=== PATIENT | female | born 1995 | race Hispanic/Latino ===

== ENCOUNTER → 2018-08-02 10:04 | Outpatient (CLI) | payer OTHER, SELFPAY ==
[2018-08-02 10:47] LABS: Add Manual Diff / Slide Review NO; Basophils Percent Auto 1.2 % (0-2); Eosinophils Percent Auto 3.9 % (2-4); Hematocrit 40.6 % (36-46); Hemoglobin 13.9 g/dL (12.0-16.0); Lymphocytes Percent Auto 47.2 % (25-40); Mean Corpuscular HGB Conc 34.3 % (30-36); Mean Corpuscular Hemoglobin 30.1 PG (26-34); Mean Corpuscular Volume 87.8 fL (80-100); Monocytes Percent Auto 8.1 % (3-14); Neutrophils Absolute Auto 1600 /uL (3000-5900); Neutrophils Percent Auto 39.6 % (50-75); Platelet Count 245 X10^3/uL (150-400); Red Blood Cell Count 4.62 X10^6/uL (4.0-5.2); Red Cell Distribution Width 12.8 % (11.6-14.8); White Blood Cell Count 4.1 X10^3/uL (4.5-11.0)
[2018-08-02 11:06] LABS: Alanine Aminotransferase 44 IU/L (9-52); Albumin 4.4 g/dL (3.5-5.0); Albumin Globulin Ratio 1.4 (1.0-2.8); Alkaline Phosphatase 67 U/L (38-126); Aspartate Aminotransferase 37 IU/L (14-36); Bilirubin Total 0.8 mg/dL (0.2-1.3); Blood Urea Nitrogen 14 mg/dL (7-17); Calcium 9.5 mg/dL (8.4-10.2); Carbon Dioxide 28 mmol/L (22-32); Chloride 104 mmol/L (98-107); Cholesterol 148 mg/dL (140-199); Estimated Glomerular Filt Rate > 60.0 mL/min (>60); Globulin 3.1 g/dL (1.7-4.1); Glucose 78 mg/dL (70-100); HDL Cholesterol 69 mg/dL (40-60); HEMOLYSIS < 15 (0-50); LDL Cholesterol Calculated 68 mg/dL (<100); Potassium 3.9 mmol/L (3.4-5.1); Sodium 143 mmol/L (137-145); Total Protein 7.5 g/dL (6.3-8.2); Triglycerides 55 mg/dL (35-150)
[2018-08-02 11:15] LABS: Appearance Urine UA CLEAR; Bilirubin Urine UA NEGATIVE (NEGATIVE); Color Urine UA YELLOW; Glucose Urine UA NEGATIVE (Normal); Ketones Urine UA NEGATIVE (NEGATIVE); Leukocyte Esterase Urine UA NEGATIVE (NEGATIVE); Nitrite Urine UA NEGATIVE (Negative); Occult Blood Urine UA NEGATIVE (Negative); Protein Urine UA NEGATIVE (Negative); Urobilinogen Urine UA 0.2 E.U./dL (0.2)
[2018-08-02 13:47] LABS: Thyroid Stimulating Hormone 2.21 uIU/mL (0.47-4.68)
== END ==
PROVIDERS: PCP Family Medicine; Visit Provider Family Medicine
DX: Z13.220 Encounter for screening for lipoid disorders (principal); Z13.29 Encounter for screening for other suspected endocrine disorder; Z30.09 Encounter for other general counseling and advice on contraception
CPT/HCPCS: 36415; 80053; 80061; 81003; 84443; 85025

== ENCOUNTER → 2018-09-28 11:44 | Outpatient (CLI) | payer OTHER, SELFPAY | PROVIDERS: PCP Family Medicine; Visit Provider Family Medicine | DX: N89.8 Other specified noninflammatory disorders of vagina (principal) | CPT/HCPCS: 87070; 87205 ==

== ENCOUNTER → 2018-11-22 14:40 | Outpatient (CLI) | payer OTHER, SELFPAY ==
--- NOTE | 2018-11-22 14:42 | DI.US.S_ITS ---
PROCEDURE: US OB <= 14 WEEKS FETUS INDICATIONS: INITIAL DATING ULTRASOUND OUTSIDE/PRIOR DATING DATA: Last menstrual period (LMP): 10/01/18. LMP-based estimated date of delivery (JAHAIRA): 07/08/19. First dating scan (date and location): [facility], 11/22/[facility]. Estimated date of delivery (JAHAIRA) from first dating scan: 07/14/19, plus or -5 days. TECHNIQUE: Real-time scanning was performed of the fetus and maternal pelvic organs, with image documentation. Endovaginal scanning was also performed to better visualize the fetus and maternal ovaries. COMPARISON: None. FINDINGS: Embryo: [place]-rump length of 7 mm correlates with a gestational age of 6 weeks 4 days, and heart activity at 135 beats per minute was observed Measurement variability in dating: +/- 4 weeks by LMP, +/- 7 days by mean sac diameter (use before 6 weeks gestation if crown-rump length not able to be measured), +/- 5 days by crown-rump length (up to 8 weeks 6 days gestation), +/- 7 days by crown-rump length (up to 13 weeks 6 days gestation). Maternal organs: Ovaries normal considering gestational status, with a possible corpus luteum cyst on the left measuring up to 2.7 cm.. Limited images through the kidneys demonstrate no hydronephrosis. IMPRESSION: Early first trimester gestation with delivery date projected to be centered on 07/14/19, plus or -5 days. anatomic survey at approximately 21 weeks gestation is recommended. Dictated by: Mark Sanchez M.D. on 11/22/2018 at 15:56 Approved by: Mark Sanchez M.D. on 11/22/2018 at 15:57
== END ==
PROVIDERS: PCP Family Medicine; Visit Provider Family Medicine
DX: Z34.91 Encounter for supervision of normal pregnancy, unspecified, first trimester (principal); Z3A.01 Less than 8 weeks gestation of pregnancy
CPT/HCPCS: 76801; 76817

== ENCOUNTER → 2018-12-12 12:32 | Outpatient (CLI) | payer OTHER, SELFPAY ==
[2018-12-12 13:25] LABS: Add Manual Diff / Slide Review NO; Basophils Absolute Auto 0 /uL (0-100); Basophils Percent Auto 0.6 % (0-2); Eosinophils Absolute Auto 0 /uL (0-450); Eosinophils Percent Auto 0.6 % (2-4); Hematocrit 43.2 % (36-46); Lymphocytes Absolute Auto 1500 /uL (1100-4500); Lymphocytes Percent Auto 20.9 % (25-40); Mean Corpuscular HGB Conc 34.7 % (30-36); Mean Corpuscular Hemoglobin 30.2 PG (26-34); Mean Corpuscular Volume 86.9 fL (80-100); Monocytes Absolute Auto 400 /uL (0-900); Monocytes Percent Auto 6.3 % (3-14); Neutrophils Absolute Auto 5100 /uL (1500-7000); Neutrophils Percent Auto 71.6 % (50-75); Platelet Count 301 X10^3/uL (150-400); Red Blood Cell Count 4.97 X10^6/uL (4.0-5.2); Red Cell Distribution Width 12.9 % (11.6-14.8); White Blood Cell Count 7.1 X10^3/uL (4.5-11.0)
[2018-12-12 14:10] LABS: Appearance Urine UA CLEAR; Bilirubin Urine UA NEGATIVE (NEGATIVE); Color Urine UA YELLOW; Glucose Urine UA NEGATIVE (Negative); Ketones Urine UA NEGATIVE (NEGATIVE); Leukocyte Esterase Urine UA TRACE (NEGATIVE); Nitrite Urine UA NEGATIVE (Negative); Occult Blood Urine UA NEGATIVE (Negative); Protein Urine UA NEGATIVE (Negative); Urobilinogen Urine UA 0.2 E.U./dL (0.2); pH Urine UA 6.5 (4.5-8.0)
[2018-12-12 14:12] LABS: RBC Urine None Seen (0-5/HPF)
[2018-12-12 15:01] LABS: Bacteria Urine Moderate (10-30); Squamous Epithelial Cell Urine 1-5 /HPF; WBC Urine 1-5/HPF (0-5/HPF)
[2018-12-12 16:37] LABS: Hepatitis B Surface Antigen NEGATIVE s/c (NEGATIVE); Rubella Antibody IgG 53.4 IU/mL (>15)
[2018-12-12 16:51] LABS: HIV 1 and 2 Antibody NEGATIVE (NEGATIVE); Hep C Virus Ab w/Reflex Quant NEGATIVE s/c (NEGATIVE)
[2018-12-16 19:31] LABS: RPR Screen Nonreactive (Nonreactive)
== END ==
PROVIDERS: PCP Family Medicine; Visit Provider Family Medicine
DX: Z34.91 Encounter for supervision of normal pregnancy, unspecified, first trimester (principal)
CPT/HCPCS: 36415; 80055; 81003; 81015; 86703; 86787; 86803; 86850; 86900; 86901; 87086

== ENCOUNTER → 2019-02-08 10:00 | Outpatient (CLI) | payer OTHER, SELFPAY ==
[2019-02-15 12:49] LABS: AFP, Serum 40.4 ng/mL; Cigarette Smoker NOT GIVEN; Donated Egg NOT GIVEN; Donor Egg Age NOT GIVEN; Estriol, Free 1.17 ng/mL; Inhibin A, Dimeric 201 pg/mL; Maternal Ethnicity HISPANIC; Maternal Weight 130 lbs; Number of Fetuses 1; Previous Pregnancy Down Syndro NOT GIVEN; hCG, MoM 1.17; hCG, Serum 36.7 IU/mL
== END ==
PROVIDERS: PCP Family Medicine; Visit Provider Family Medicine
DX: Z34.02 Encounter for supervision of normal first pregnancy, second trimester (principal); Z3A.16 16 weeks gestation of pregnancy
CPT/HCPCS: 36415; 82105; 82677; 84702; 86336

== ENCOUNTER → 2019-02-25 09:13 | Outpatient (CLI) | payer OTHER, SELFPAY ==
--- NOTE | 2019-02-25 09:14 | DI.US.S_ITS ---
PROCEDURE: US OB >= 14 WEEKS FETUS INDICATIONS: ANATOMY OUTSIDE/PRIOR DATING DATA: Last menstrual period (LMP): 10/01/18. LMP-based estimated date of delivery (JAHAIRA): 07/08/19. First dating scan (date and location): [facility], 11/22/18. Estimated date of delivery (JAHAIRA) from first dating scan: 07/14/19, plus or -5 days. TECHNIQUE: Real-time scanning was performed of the fetus, with image documentation and biometric measurements. COMPARISON: [facility], , OB <= 14 WEEKS FETUS, 11/22/2018, 14:52. FINDINGS: General: A single live intrauterine gestation is present. Presentation: Vertex. Placenta: Placental position is anterior, without previa. Amniotic fluid index: 16.8 cm, normal range is 5-24 cm. heart rate: 143 beats per minute. Maternal cervical canal: 4.2 cm long. Normal lower limit is 2.5 cm. biometrics: Biparietal diameter: 4.9 cm equals 20 weeks 6 days Head circumference: 18.3 cm equals 20 weeks 5 days Abdominal circumference: 14.9 cm equals 20 weeks 1 day Femur length: 3.3 cm equals 20 weeks 2 days Estimated gestational age from initial scan: 20 weeks 1 day Composite gestational age from present scan: 20 weeks 4 days Estimated weight and percentile: 343 g, 53rd percentile Measurement variability for biometric dating: +/- 7 days from 14 weeks to 15 weeks 6 days gestation, +/- 10 days from 16 weeks to 21 weeks 6 days gestation, +/- 2 weeks from 22 weeks to 27 weeks 6 days gestation, +/- 3 weeks for 28 weeks gestation or later. weight reference: 4500 g or EFW >90/95% is considered macrosomia or large for gestational age. EFW <10% is small for gestational age. EFW 5% or less is considered intra-uterine growth restriction. Anatomic survey: Neuro: Ventricles are non-dilated at less than 10 mm. Cisterna magna is normal at 3-11 mm. Cerebellum is normal in size and morphology. Nuchal skin fold: Normal at less than 6 mm between 14-21 weeks gestational age. Face: No abnormalities are can be seen of the face, although it is not well-seen. Spine: No evidence for spina bifida. Heart: 4-chambered heart is present, with normal ventricular outflow tracts. Diaphragm: Diaphragm is intact. Stomach: Left-sided stomach is present. Kidneys: No hydronephrosis. Normal is less than 5 mm in 2nd trimester, less than 7 mm in 3rd trimester. Cord: 3-vessel cord has orthotopic insertion. Bladder: Normal in size. Extremities: All 4 extremities identified. IMPRESSION: Normal interval growth when compared to the prior ultrasound examination. No anatomic abnormalities are identified. However, the face was not well seen. Dictated by: Deandre Lynch M.D. on 02/25/2019 at 9:51 Approved by: Deandre Lynch M.D. on 02/25/2019 at 9:53
== END ==
PROVIDERS: PCP Family Medicine; Visit Provider Family Medicine
DX: Z34.92 Encounter for supervision of normal pregnancy, unspecified, second trimester (principal); Z3A.20 20 weeks gestation of pregnancy
CPT/HCPCS: 76811

== ENCOUNTER → 2019-04-18 16:12 | Outpatient (CLI) | payer OTHER, SELFPAY ==
[2019-04-18 17:25] LABS: Hematocrit 31.1 % (36-46); Hemoglobin 10.9 g/dL (12.0-16.0)
[2019-04-18 17:47] LABS: GTT (PREG) 1 Hour PP 50gm Dose 97 mg/dL (76-139)
== END ==
PROVIDERS: PCP Family Medicine; Visit Provider Family Medicine
DX: Z34.92 Encounter for supervision of normal pregnancy, unspecified, second trimester (principal); Z3A.26 26 weeks gestation of pregnancy
CPT/HCPCS: 36415; 82950; 85014; 85018

== ENCOUNTER → 2019-06-05 07:08 | Outpatient (CLI) | payer OTHER, SELFPAY ==
--- NOTE | 2019-06-05 07:09 | DI.US.S_ITS ---
PROCEDURE: US OB LIMITED INDICATIONS: SGA; POSSIBLE IUGR OUTSIDE/PRIOR DATING DATA: Last menstrual period (LMP): 10/01/18. LMP-based estimated date of delivery (JAHAIRA): 07/08/19. First dating scan (date and location): [facility], 11/22/18. Estimated date of delivery (JAHAIRA) from first dating scan: 07/14/19, plus or -5 days. TECHNIQUE: Real-time scanning was performed of the fetus, with image documentation and biometric measurements. COMPARISON: [facility], OB >= 14 WEEKS FETUS, 02/25/2019, 9:35. [facility], OB <= 14 WEEKS FETUS, 11/22/2018, 14:52. FINDINGS: General: A single live intrauterine gestation is present. Presentation: Vertex. Placenta: Placental position is left anterior, without previa. Amniotic fluid index: 9.4 cm, normal range is 5-24 cm. heart rate: 139 beats per minute. Maternal cervical canal: Not seen. biometrics: Biparietal diameter: 8.3 cm equals 33 weeks 2 days Head circumference: 31 cm equals 34 weeks 5 days Abdominal circumference: 27.7 cm equals 31 weeks 5 days Femur length: 6.6 cm equals 34 weeks 1 day Estimated gestational age from initial scan: 34 weeks 3 days Composite gestational age from present scan: 33 weeks 3 days Estimated weight and percentile: 2077 g, 11 percentile Measurement variability for biometric dating: +/- 7 days from 14 weeks to 15 weeks 6 days gestation, +/- 10 days from 16 weeks to 21 weeks 6 days gestation, +/- 2 weeks from 22 weeks to 27 weeks 6 days gestation, +/- 3 weeks for 28 weeks gestation or later. weight reference: 4500 g or EFW >90/95% is considered macrosomia or large for gestational age. EFW <10% is small for gestational age. EFW 5% or less is considered intra-uterine growth restriction. Other: There is prominent right-sided maternal hydronephrosis. IMPRESSION: The head circumference is much smaller than would be expected for gestational age, with correlates well with the presenting clinical history of small for gestational age. Prominent right-sided maternal hydronephrosis can be seen. The fetus itself is at the 11th percentile for estimated gestational weight. Dictated by: Deandre Lynch M.D. on 06/05/2019 at 8:24 Approved by: Deandre Lynch M.D. on 06/05/2019 at 8:31
== END ==
PROVIDERS: PCP Family Medicine; Visit Provider Family Medicine
DX: O36.5930 Maternal care for other known or suspected poor fetal growth, third trimester, not applicable or unspecified (principal); O99.89 Other specified diseases and conditions complicating pregnancy, childbirth and the puerperium; N13.30 Unspecified hydronephrosis; Z3A.33 33 weeks gestation of pregnancy
CPT/HCPCS: 76815

== ENCOUNTER → 2019-06-17 13:48 | Outpatient (CLI) | payer OTHER, SELFPAY ==
[2019-06-18 12:52] LABS: Strep Grp B PCR NEG for Grp B Strep
== END ==
PROVIDERS: PCP Family Medicine; Visit Provider Family Medicine
DX: Z34.90 Encounter for supervision of normal pregnancy, unspecified, unspecified trimester (principal); Z3A.36 36 weeks gestation of pregnancy
CPT/HCPCS: 87653

== ENCOUNTER 2019-07-02 14:41 | Outpatient (CLI) | payer OTHER, SELFPAY ==
--- NOTE | 2019-07-02 16:12 | P.TNLD_ITS ---
Visit Information Visit Information Date of evaluation: 07/02/19 Primary OB Provider: Cassia Palacios Reason for Evaluation: Yes rupture of membranes Comments/Additional reasons for admission: Patient reports leaking of fluid since 9 AM this morning to the point that it soaks her underwear. Fluid appears clear, no blood, brown or green in fluid. Good movement. No contractions but was having some cramping yesterday. 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 blood pressure 135/83 heart rate 73 Evaluation Evaluation Baseline heart rate: 140 Variability: Moderate (11-25) monitor accelerations: Present monitor decelerations: Absent Uterine Contraction Intensity: Mild Category of Tracing: I Cervical dilation (cm): 1 Cervical effacement (%): 50 station: -1 Non-invasive Membranes Rupture Test: positive Diagnosis, Plan/Disposition Final Diagnosis (1) 38 weeks gestation of : Current Visit: No Status: Acute (2) Spontaneous rupture of membranes: Current Visit: No Status: Acute Plan/Disposition Plan: Patient is a 24-year-old at 38 weeks and 2 days gestation with spontaneous rupture membranes at 9:00 a.m. today. Not yet in labor. NST reactive. GBS negative. Schmidt score of 5. Will let her go home for a few hours and returned this evening for oral Cytotec. OB Disposition: home
== END 2019-07-02 15:45 | disposition home or self-care (01) ==
LOC: OB 07-05 11:27
PROVIDERS: PCP Family Medicine; Visit Provider Family Medicine
DX: Z34.03 Encounter for supervision of normal first pregnancy, third trimester (principal); Z3A.38 38 weeks gestation of pregnancy
CPT/HCPCS: 59050; 84112; G0378; G0379

== ENCOUNTER 2019-07-02 19:00 | Inpatient (IN) | payer OTHER, SELFPAY ==
[2019-07-02] MEDS: miSOPROStol 25 MCG TABLET PO (20:48)
[2019-07-02 22:00] LABS: Add Manual Diff / Slide Review NO; Basophils Absolute Auto 0 /uL (0-100); Basophils Percent Auto 0.2 % (0-2); Eosinophils Absolute Auto 100 /uL (0-450); Eosinophils Percent Auto 0.8 % (2-4); Hematocrit 33.6 % (36-46); Hemoglobin 11.4 g/dL (12.0-16.0); Lymphocytes Absolute Auto 2000 /uL (1100-4500); Lymphocytes Percent Auto 27.2 % (25-40); Mean Corpuscular HGB Conc 34.1 % (30-36); Mean Corpuscular Hemoglobin 30.5 PG (26-34); Mean Corpuscular Volume 89.5 fL (80-100); Monocytes Absolute Auto 500 /uL (0-900); Monocytes Percent Auto 6.8 % (3-14); Neutrophils Absolute Auto 4900 /uL (1500-7000); Platelet Count 200 X10^3/uL (150-400); Red Blood Cell Count 3.76 X10^6/uL (4.0-5.2); White Blood Cell Count 7.5 X10^3/uL (4.5-11.0)
[2019-07-02 22:55] VITALS: BP 115/74
[2019-07-03] MEDS: miSOPROStol 25 MCG TABLET PO (02:16)
--- NOTE | 2019-07-03 06:23 | P.HPOB_ITS ---
OB HPI Date/Time Date of admission: 07/02/19 Date Patient Seen: 07/03/19 Time Patient Seen: 06:24 History of Present Condition Chief complaint: OBSERVATION OF LABOR : 1 Para: 0 Estimated Date of Delivery: 07/14/19 Estimated Gestational Age (weeks): 38w3d Narrative: Eloise Hollis is a 24 year old at 38 weeks and 3 days gestation with PROM yesterday at approximately 9 AM. She at work when she felt leaking. L eaking persisted and soaked her underwear. She presented to the center where Amnisure was positive. She was not in labor so was sent home for a few hours then returned in the evening for oral Cytotec. She received two doses of Cytotec overnight and reports feeling cramping and mild contractions. Continued to leak small amounts of clear fluid overnight. History of Present care: good care, initiated at week # (9), number of visits (10) and pounds weight gain (24) Dating criteria: based on 1st trimester US only (discordant with LMP) Ultrasounds: normal 1st trimester US and normal mid trimester US Abnormal ultrasound findings: US done for size<dates at 33 weeks showed EFW at 11%. Follow up US at 36 weeks showed EFW at 23%. Obstetrical complications: none Medical complications: none Preadmission Labs Blood type: O (+) positive -: Antibody screen: negative, GBS status: negative, HBsAG: negative, HIV: negative and RPR/VDLR: negative -: Chlamydia screen: not detected and Gonorrhea screen: not detected -: Rubella: immune and Varicella: immune HCT: 43 HCAB: negative PAP: Normal Quad screen: Normal Urine: Negative 1 hr GTT: 97 Evaluation Evaluation Baseline heart rate: 135 Variability: Moderate (11-25) monitor accelerations: Present monitor decelerations: Absent Contraction Frequency (minutes): 3 Uterine Contraction Intensity: Moderate Category of Tracing: I Cervical dilation (cm): 2 Cervical effacement (%): 70 station: -2 Laboratory results: Laboratory Tests 07/02/19 07/02/19 20:28 20:28 WBC 7.5 RBC 3.76 L Hgb 11.4 L Hct 33.6 L MCV 89.5 MCH 30.5 MCHC 34.1 RDW 13.0 Plt Count 200 Neut % (Auto) 65.0 Lymph % (Auto) 27.2 [place] % (Auto) 6.8 Eos % (Auto) 0.8 L Baso % (Auto) 0.2 Neut # (Auto) 4900 Lymph # (Auto) 2000 [place] # (Auto) 500 Eos # (Auto) 100 Baso # (Auto) 0 Blood Type O Positive Antibody Screen Negative Non-invasive Membranes Rupture Test: positive PFSH Surgical History No history of previous surgery (Resolved) Family History Grandfather Diabetes mellitus Social History marital status: 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 ) Smoking Status: Never smoker alcohol intake: never substance use type: does not use Family History Grandfather Diabetes mellitus Social History marital status: 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 ) Smoking Status: Never smoker alcohol intake: never substance use type: does not use Meds Home Medications and Allergies Home Medications Medication Instructions Recorded Confirmed Type prenat.vits,philip,twq-[id number]-[id number] 1 tab PO DAILY 12/12/18 06/28/19 History Allergies Allergy/AdvReac Type Severity Reaction Status Date / Time No Known Drug Allergies Allergy Verified 06/28/19 09:17 Review of Systems Review of Systems ROS Unobtainable: All systems reviewed & are unremarkable except as noted in HPI and below Exam Vital Signs (past 8 hours): - 07/02/19 22:55 Blood Pressure 115/74 Const General: healthy appearing and comfortable [facility] Head: normal to inspection Ears: hearing grossly normal bilaterally Nose: external nose normal Face and sinus: normal facial exam Mouth: oral mucosae normal Eyes General: appearance normal, both eyes and all related structures Neck Neck: normal visual inspection Resp Effort & Inspection: normal respiratory effort Auscultation: clear to auscultation bilaterally Cardio Rate: regular rate Rhythm: regular rhythm Heart Sounds: no murmurs GI Other: Gravid External Female Exam: external appearance normal Manual OB Exam: dilated 2, effaced 75% and station -2 Presentation: vertex Estimated Weight (lbs): 6 Amniotic Fluid: clear Back/Spine/Pelvis Back: normal to inspection Skin General: no rashes or lesions noted Extrem General: normal to inspection and edema (trace bilateral) Objective Labs Result Diagrams: 07/02/19 20:28 Labs: Laboratory Results - last 24 hr 07/02/19 07/02/19 20:28 20:28 WBC 7.5 RBC 3.76 L Hgb 11.4 L Hct 33.6 L MCV 89.5 MCH 30.5 MCHC 34.1 RDW 13.0 Plt Count 200 Neut % (Auto) 65.0 Lymph % (Auto) 27.2 [place] % (Auto) 6.8 Eos % (Auto) 0.8 L Baso % (Auto) 0.2 Neut # (Auto) 4900 Lymph # (Auto) 2000 [place] # (Auto) 500 Eos # (Auto) 100 Baso # (Auto) 0 Blood Type O Positive Antibody Screen Negative Assessment and Plan Assessment and Plan Assessment and Plan narrative: 24 year old at 38 weeks and 3 days gestation with PROM 07/02/19 at 9 AM. Amnisure positive yesterday afternoon. GBS negative. Patient received two doses of oral cytotec last night for cervical ripening to good effect. During SVE this morning there was a bulging bag which ruptured during the exam with a small amount of clear fluid. Plan - Pitocin per protocol - Epidural upon request
[2019-07-03] MEDS: OXYTOCIN PREMIX 30 UNIT/500 ML PLAST..BAG IV (06:48)
--- NOTE | 2019-07-03 12:21 | PM.OBPNLAB ---
Date/Time Date Patient Seen: 07/03/19 Time Patient Seen: 12:21 Pain Control Pain control: tolerating well Comments: Rates pain as 6/10 with contractions, tolerating well but becoming more painful Pelvic Exam Dilation (cm): 5 Effacement (%): 90 station: -1 Amniotic membrane status: Ruptured Contractions Monitor mode: External Pitocin rate (mU/min): 12 Contraction pattern: Regular Contraction intensity: Moderate Status status: Category l Heart Rate Baseline: 135 Monitor Accelerations: Present Monitor Decelerations: Absent Monitor Variability: Moderate Assessment and Plan Assessment: active labor Plan: continuous present management Comments: Bag again noted on exam, AROM with clear fluid. Continue pitocin.
[2019-07-03 16:05] VITALS: BP 115/74
--- NOTE | 2019-07-03 16:13 | P.PCNOB_ITS ---
Labor & Delivery Delivery date: 07/03/19 Intrapartal events: None Delivery augmentation: rupture of membranes and pitocin Delivery monitor: external FHT Route of delivery: L&D Laceration Description: Vaginal - 2nd Degree (Right) Delivery repair: vicryl Estimated blood loss (mL): 350 Anesthesia type: Epidural Narrative: VAGINAL DELIVERY NOTE BRIEF HISTORY: Patient is a 24-year-old at 38 weeks and 3 days gestation who gave on 07/03/19 at 15:45. JAHAIRA: 07/14/19 Hospital problems: 38 weeks of Premature rupture of membranes STAGE I: Labor Patient was admitted for premature rupture of membranes which occurred at 9:00 a.m. on 07/02/19 with clear fluid and ongoing leaking. She received oral Cy totec with good progress overnight then was started on Pitocin per protocol. Painful contractions started at 10:00 a.m.. She received an epidural with excellent pain control and was complete at 3:30 p.m.. heart tones were category 1 and 2 throughout stage I due to occasional variable decelerations. STAGE II: Delivery The second stage of labor lasted 15 minutes. Patient delivered a vigorous male at 3:45 p.m.. Presentation was vertex and ANNA. A nuchal cord x1 was reduced. Infant was placed on mother's abdomen. Cord was clamped and cut after 1 minutes delay. Apgars were 8 and 9. No resuscitation of the required. STAGE III: Placenta/Cord Placenta delivered at 3:56 p.m. and appeared intact with a three-vessel cord. Pitocin bolused given after delivery of placenta. A second degree right vaginal laceration was repaired with 4 0 Vicryl in the usual fashion. Hemostasis achieved. Complications: None. Uterus firm below umbilicus. Hemostasis ensured. EBL: 350 mL. Needle and sponge counts were correct. The vagina was inspected and no items were left in situ. Patient was doing well with Bahman, her and at bedside. [place] Baby 1: gender: Male Presentation: vertex position: Right Occiput Anterior Placenta delivery description: Spontaneous cord vessel description: Nuchal Cord (X1, reduced) score (1 min): 8 score (5 min): 9
[2019-07-04] MEDS: PRENATAL VIT,CALC/IRON/FOLIC 1 TABLET 1 TAB PO (08:02)
[2019-07-04] MEDS: DOCUSATE 250 MG CAPSULE PO (08:04)
--- NOTE | 2019-07-04 14:21 | PM.OBDS.1 ---
Discharge Providers Provider Date of admission: 07/02/19 19:00 Discharge Date: 07/04/19 Primary care physician: Kelsi Byrd DO Consults: 07/03/19 17:51 Consult to Back Up Scan Coordinator Routine Comment: Discharge provider: Cassia Palacios DO Summary Hospital Course Date Patient Seen: 07/04/19 Time Patient Seen: 14:32 Procedures: Spontaneous vaginal delivery Epidural analgesia Hospital Course: Patient is a 24 old after uncomplicated spontaneous vaginal delivery 07/03/19 at 38 weeks and 3 days gestation. Patient presented after spontaneous rupture of membranes at work on 07/02/19 at 9:00 a.m.. She received oral Cytotec for cervical ripening and Pitocin per protocol. She progressed well and received an epidural with adequate pain control. Infant was vigorous at delivery. A second-degree vaginal laceration was repaired in the usual fashion. course uncomplicated. Patient was eating, ambulating, voiding and stooling without issue. Bleeding was reportedly a bit heavier than a period but not severe. She was not using anything for pain control. Breast-feeding going well. No issues in the . She will discharge home later today. Peripartum Data Infant Delivery Method: Natural Vaginal Laceration description: Vaginal - 2nd Degree complications: none Fowler 1: Gender: Male Disposition of : home Discharge Diagnosis (1) 38 weeks gestation of : Status: Acute (2) Spontaneous rupture of membranes: Status: Acute Status at Discharge Cognitive/behavioral status at discharge: at baseline, oriented Overall status at discharge: patient is back to baseline Time Spent with Patient Time attestation: Total time spent providing and/or coordinating discharge services: Time spent: Less than 30 minutes Objective Labs Result Diagrams: 07/02/19 20:28 Exam Vital Signs (past 8 hours): Temperature 98.0? Blood pressure 118/80 Heart rate 90 Narrative Exam Narrative: General: Awake and alert, no acute distress. HEENT: NCAT, EOMI, moist oral mucosa CV: Regular rate and rhythm, no murmurs, rubs or gallops Lungs: CTAB, no wheezes, rales, or rhonchi Abdomen: Soft, nontender; bowel tones active; uterus firm 2 cm below umbilicus Extremities: Warm, no edema, 2+ pedal pulses bilaterally Discharge Plan Discharge Plan Patient Disposition: Home Discharge comment: Call for fevers, severe pain or bleeding through more than a pad an hour Discharge Med Rec/Prescriptions Prescriptions: New ibuprofen 600 mg Tablet 600 mg PO Q6HR PRN (Reason: Pain, Mild (1-3)) Qty: 30 RF: 0 docusate sodium 250 mg Capsule 250 mg PO DAILY Qty: 30 RF: 0 Continued prenat.vits,philip,pyx-czya-vmaca tablet 1 tab PO DAILY RF: 0 Follow up/Referrals: Kelsi Byrd DO [Primary Care Provider] - Cassia Palacios DO [Physician] - 6 Weeks Provider Discharge Instructions Diet: Diet as Tolerated Skin/Wound/Dressing Care Report to your healthcare provider any signs of infection, such as:: chills, fever, increased pain and unusual drainage Visit Report/Discharge Packet Visit Report Forms: Patient Portal/API, Stroke Signs & Symptoms Discharge Data Primary Care Provider: Kelsi Byrd
[2019-07-04 14:43] VITALS: BP 115/74; PULSE 74; RESP 18; TEMP 36.7
== END 2019-07-04 15:54 | disposition home or self-care (01) | DRG 807 ==
PROVIDERS: Admitting Provider Family Medicine; PCP Family Medicine; Visit Provider Family Medicine
DX: O42.12 Full-term premature rupture of membranes, onset of labor more than 24 hours following rupture (principal); Z37.0 Single live birth; Z3A.38 38 weeks gestation of pregnancy; O69.81X0 Labor and delivery complicated by cord around neck, without compression, not applicable or unspecified; O70.1 Second degree perineal laceration during delivery
CPT/HCPCS: 01967; 59050; 59400; 85025; 86850; 86900; 86901; G0379; J2590

== ENCOUNTER 2021-03-24 20:30 | Emergency (ER) | payer SELFPAY ==
[2021-03-24 20:37] VITALS: BP 108/69; PULSE 70; RESP 16; TEMP 36.5; O2SAT 100
--- NOTE | 2021-03-24 20:48 | ED.WOUNDLAC ---
HPI - Wound/Laceration General Chief Complaint: Wound/Laceration Stated Complaint: lt middle finger cut Time Seen by Provider: 03/24/21 20:48 Source: patient Mode of arrival: Ambulatory History of Present Illness HPI narrative: Patient is a 25-year-old female here for evaluation of a cut to her left middle finger. 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 Related Data Home Medications Medication Instructions Recorded Confirmed prenat.vits,philip,rnf-geey-kbkvx 1 tab PO DAILY 12/12/18 07/03/19 levonorgestrel 20 mcg/24 hours (6 INTRAUTERINE 09/09/19 09/09/19 yrs) 52 mg intrauterine device (Mirena) Previous Rx's Medication Instructions Recorded docusate sodium 250 mg capsule 250 mg PO DAILY #30 cap 07/04/19 ibuprofen 600 mg tablet 600 mg PO Q6HR PRN #30 tab 07/04/19 Allergies Allergy/AdvReac Type Severity Reaction Status Date / Time No Known Drug Allergies Allergy Verified 06/28/19 09:17 Review of Systems Musculoskeletal Comments: No pain with movement of the joints of the left hand Integumentary/Breasts Comments: Cut to the left middle finger Hematologic/Lymphatic On Anticoagulants: No Patient History Medical History Spontaneous vaginal delivery Surgical History No history of previous surgery Family History Grandfather Diabetes mellitus Social History marital status: 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 Neuro Sensory Exam: no sensory deficits noted Extrem Other: Full range of motion of the PIP and the IP joint of left middle finger Psych Appearance: grossly normal and well kempt Procedures Laceration Repair Laceration 1: Site: hand Side (If applicable): left Size (cm): 1 Description: linear Depth: simple, single layer Local Anesthetic: lidocaine 1% and with bicarb Amount of anesthesia used (mL): 3 Pre-repair: wound explored and deep structures intact Skin layer closed with: nylon Size (cm): 4-0 Number of sutures: 2 Technique: simple, interrupted Course Orders Ordered: Discontinued Medications Bacitracin (Bacitracin Oint 0.9 Gm Pckt) 1 applic TOP NOW ONE Stop: 03/24/21 20:49 Last Admin: 03/24/21 21:29 Dose: 1 applic Documented by: [email or web address] Lidocaine/Sodium Bicarbonate (Lido 1%/Sod Bicarb 8.4% (10ml) 10 Ml Syringe) 10 ml INJ NOW ONE Stop: 03/24/21 21:08 Last Admin: 03/24/21 21:29 Dose: 10 ml Documented by: [email or web address] Vital Signs Vital signs: Vital Signs - 8 hr 03/24/21 20:37 Temperature 97.7 F Pulse Rate 70 Respiratory Rate 16 Blood Pressure 108/69 Pulse Oximetry 100 MDM - Wound/Laceration MDM Narrative Medical decision making narrative: I initially had a discussion with the patient regarding the nature of her injury. This was more of a skin avulsion given the nature with the scissors rather than a linear laceration. Initially the patient opted to not have any stitches placed and to allow it to heal by secondary intention. After further contemplation she decided the stitches placed. She was given return precautions and follow-up instructions the care instructions. She expressed understanding and agreement. Discharge Plan Departure Patient Disposition: Home Clinical Impression: Laceration Instructions: DI for Minor Laceration Activity Restrictions/Additional Instructions: The stitches do need to be removed in 7-10 days. You can still covered with an antibiotic ointment and also a bandage. Contact your primary provider for follow-up. Return to the emergency department for any new or worsening symptoms Prescriptions: No Action Mirena 20 mcg/24 hours (5 yrs) 52 mg intrauterine device intrauterine RF: 0 prenat.vits,philip,bhk-hwyl-qupse tablet 1 tab PO DAILY RF: 0 ibuprofen 600 mg Tablet 600 mg PO Q6HR PRN (Reason: Pain, Mild (1-3)) Qty: 30 RF: 0 docusate sodium 250 mg Capsule 250 mg PO DAILY Qty: 30 RF: 0 Referrals: Kelsi Byrd DO [Primary Care Provider] -
[2021-03-24] MEDS: LIDO 1%/SOD BICARB 8.4% (10ML) 10 ML SYRINGE INJ (21:29)
[2021-03-24] MEDS: BACITRACIN OINT 0.9 GM PCKT 1 APPLIC TOP (21:29)
== END 2021-03-24 21:25 | disposition home or self-care (01) ==
PROVIDERS: Emergency Provider Emergency Medicine; PCP Family Medicine
DX: S61.213A Laceration without foreign body of left middle finger without damage to nail, initial encounter (principal); W26.8XXA Contact with other sharp object(s), not elsewhere classified, initial encounter
CPT/HCPCS: 12001; 99283

== ENCOUNTER → 2022-09-26 13:21 | Outpatient (ROUT) | payer OTHER, MEDICAID, SELFPAY ==
[2022-09-26 13:30] LABS: Appearance Urine UA CLEAR; Bilirubin Urine UA NEGATIVE (NEGATIVE); Color Urine UA YELLOW; Glucose Urine UA NEGATIVE (Negative); Ketones Urine UA NEGATIVE (NEGATIVE); Leukocyte Esterase Urine UA TRACE (NEGATIVE); Nitrite Urine UA NEGATIVE (Negative); Occult Blood Urine UA NEGATIVE (Negative); Protein Urine UA NEGATIVE (Negative); Urobilinogen Urine UA 0.2 E.U./dL (0.2)
[2022-09-26 13:34] LABS: pH Urine UA 6.5 (4.5-8.0)
[2022-09-26 13:38] LABS: Bacteria Urine Moderate (10-30); RBC Urine None Seen (0-5/HPF); WBC Urine 1-5/HPF (0-5/HPF)
== END ==
PROVIDERS: PCP Family Medicine; Visit Provider Family Medicine
DX: Z34.81 Encounter for supervision of other normal pregnancy, first trimester (principal)
CPT/HCPCS: 81003; 81015; 87086

== ENCOUNTER → 2022-09-26 13:29 | Outpatient (CLI) | payer OTHER, MEDICAID, SELFPAY ==
[2022-09-26 14:56] LABS: Add Manual Diff / Slide Review NO; Basophils Absolute Auto 0 /uL (0-100); Basophils Percent Auto 0.4 % (0-2); Eosinophils Absolute Auto 100 /uL (0-450); Hematocrit 39.5 % (36-46); Hemoglobin 13.7 g/dL (12.0-16.0); Lymphocytes Absolute Auto 1800 /uL (1100-4500); Lymphocytes Percent Auto 21.4 % (25-40); Mean Corpuscular HGB Conc 34.7 % (30-36); Mean Corpuscular Hemoglobin 29.9 PG (26-34); Mean Corpuscular Volume 86.1 fL (80-100); Monocytes Absolute Auto 400 /uL (0-900); Monocytes Percent Auto 4.5 % (3-14); Neutrophils Absolute Auto 6000 /uL (1500-7000); Neutrophils Percent Auto 72.7 % (50-75); Platelet Count 268 X10^3/uL (150-400); Red Blood Cell Count 4.59 X10^6/uL (4.0-5.2); Red Cell Distribution Width 12.6 % (11.6-14.8); White Blood Cell Count 8.2 X10^3/uL (4.5-11.0)
[2022-09-26 16:08] LABS: Hepatitis B Surface Antigen NEGATIVE s/c (NEGATIVE); Rubella Antibody IgG 65.4 IU/mL (>15)
[2022-09-26 16:19] LABS: HIV 1 & 2 Ab/Ag 4th Gen Combo NEGATIVE (NEGATIVE); Hep C Virus Ab w/Reflex Quant NEGATIVE s/c (NEGATIVE)
[2022-09-27 08:25] LABS: Varicella IgG Antibody 418 index (Immune >165)
[2022-09-28 11:37] LABS: RPR Screen Non Reactive (Non Reactive)
== END ==
PROVIDERS: PCP Family Medicine; Referring Provider Family Medicine; Visit Provider Family Medicine
DX: Z34.81 Encounter for supervision of other normal pregnancy, first trimester (principal)
CPT/HCPCS: 36415; 80055; 81003; 81015; 86787; 86803; 86850; 86900; 86901; 87086; 87389

== ENCOUNTER → 2022-10-28 14:56 | Outpatient (CLI) | payer OTHER, MEDICAID, SELFPAY ==
[2022-11-01 20:36] LABS: AFP, Serum 40.7 ng/mL (.); Calc Gestational Age Ultrasound (.); Estriol, Free 0.42 ng/mL (.); Inhibin A, Dimeric 136.29 pg/mL (.); Maternal Ethnicity Other (.); Maternal Weight 124 lbs (.); Number of Fetuses No (.); OSBR Risk 1 IN 7603 (.); Results Report (.); Test Results *Screen Negative* (.); hCG, Serum 40420 mIU/mL (.)
== END ==
PROVIDERS: PCP Family Medicine; Referring Provider Family Medicine; Visit Provider Family Medicine
DX: Z34.81 Encounter for supervision of other normal pregnancy, first trimester (principal)
CPT/HCPCS: 36415; 82105; 82677; 84702; 86336

== ENCOUNTER → 2022-11-28 14:15 | Outpatient (CLI) | payer OTHER, MEDICAID, SELFPAY ==
--- NOTE | 2022-11-28 14:15 | DI.US.S_ITS ---
PROCEDURE: US OB >= 14 WEEKS FETUS INDICATIONS: ANATOMY OUTSIDE/PRIOR DATING DATA: Last menstrual period (LMP): Uncertain. LMP-based estimated date of delivery (JAHAIRA): Unknown. First dating scan (date and location): 11/28/2022 Estimated date of delivery (JAHAIRA) from first dating scan: 04/24/2023. The calculations are made using the working JAHAIRA of 04/17/2023. TECHNIQUE: Real-time scanning was performed of the fetus, with image documentation and biometric measurements. Endovaginal scanning: Not indicated COMPARISON: [facility], OB >= 14 WEEKS FETUS, 02/25/2019, 9:35. FINDINGS: General: A single living intrauterine gestation is present. Presentation: Variable Placenta: Placental position is posterior, without previa. Amniotic fluid index: 17.4 cm, normal range is 5-24 cm. Single deepest vertical pocket is 5.1 cm. heart rate: 133 beats per minute. Maternal cervical canal: 3.4 cm long. Normal lower limit is 2.5 cm. biometrics: Biparietal diameter: 4.4 cm, 19 weeks, 2 days. Head circumference: 15.7 cm, 18 weeks, 4 days. Abdominal circumference: 14.2 cm, 19 weeks, 4 days. Femur length: 2.8 cm, 18 weeks, 4 days. Clinically estimated gestational age: 20 weeks, 0 day. Composite gestational age from present scan: 19 weeks, 0 day. Estimated weight and percentile: 273 grams, 8 percent. Anatomic survey: Neuro: Ventricles are non-dilated at less than 10 mm. Cisterna magna is normal at 3-11 mm. Cerebellum is normal in size and morphology. Nuchal skin fold: Normal at less than 6 mm between 14-21 weeks gestational age. Face: Nose and lips, facial profile are normal. Spine: No evidence for spina bifida. Heart: 4-chambered heart and outflow tracts are not well seen. Diaphragm: Diaphragm is intact. Stomach: Left-sided stomach is present. Kidneys: No hydronephrosis. Normal is less than 5 mm in 2nd trimester, less than 7 mm in 3rd trimester. Cord: 3-vessel cord has orthotopic insertion. Bladder: Normal in size. Extremities: All 4 extremities identified. Umbilical artery S/D ratio is 4.2, 4.7 and 3.7. IMPRESSION: 1. Single live intrauterine gestation with fetus in variable presentation. heart rate is 133 beats per minute. Normal amount of amniotic fluid. 2. Estimated weight is 8 percent with head circumference measured at 2 percent and femur length measured at 6 percent. 3. cardiac structures are not well seen due to position. Rest of the anatomic survey is normal. 4. Mildly elevated umbilical artery S/D ratio although this is likely due to early gestational age. Follow-up study is recommended. We strive to produce accurate, complete, and clear reports of imaging services. To assist us in improving patient care, this report was composed using standard report templates and voice recognition software. Therefore, it may contain abnormal punctuation, insertions and/or omissions. Occasional wrong-word or sound-alike substitutions may occur. Though we review the report and make efforts to correct it, we do recommend that the report be read carefully in proper context to recognize any text inaccuracies. Dictated by: Olu Conti M.D. on 11/29/2022 at 12:19 Approved by: lOu Conti M.D. on 11/29/2022 at 13:06
== END ==
PROVIDERS: PCP Family Medicine; Referring Provider Family Medicine; Visit Provider Family Medicine
DX: Z36.89 Encounter for other specified antenatal screening (principal); Z3A.19 19 weeks gestation of pregnancy
CPT/HCPCS: 76811

== ENCOUNTER → 2023-01-02 14:13 | Outpatient (CLI) | payer OTHER, MEDICAID, SELFPAY ==
--- NOTE | 2023-01-02 14:14 | DI.US.S_ITS ---
PROCEDURE: US OB LIMITED INDICATIONS: SGA 1 month follow up OUTSIDE/PRIOR DATING DATA: Last menstrual period (LMP): Unknown. LMP-based estimated date of delivery (JAHAIRA): Unknown. First dating scan (date and location): 11/28/2022 Estimated date of delivery (JAHAIRA) from first dating scan: 04/24/2023 The calculations are made using the working JAHAIRA of 04/17/2023. TECHNIQUE: Real-time scanning was performed of the fetus, with image documentation and biometric measurements. Endovaginal scanning: Not indicated COMPARISON: [facility], , OB LIMITED, 06/05/2019, 7:20. FINDINGS: General: A single living intrauterine gestation is present. Presentation: Vertex Placenta: Placental position is posterior, without previa. Amniotic fluid index: 12.3 cm, normal range is 5-24 cm. Single deepest vertical pocket is 4.3 cm. heart rate: 163 beats per minute. Maternal cervical canal: 4.0 cm long. Normal lower limit is 2.5 cm. biometrics: Biparietal diameter: 6.3 cm, 25 weeks, 2 days. Head circumference: 21.9 cm, 24 weeks, 0 days. Abdominal circumference: 19.4 cm, 24 weeks, 1 day. Femur length: 4.1 cm, 23 weeks, 3 days. Clinically estimated gestational age: 25 weeks, 0 day. Composite gestational age from present scan: 24 weeks, 2 days. Estimated weight and percentile: 640 g, 7%. Other: Four-chamber heart and outflow tracts are visualized and are within normal limits. IMPRESSION: 1. Single live intrauterine gestation with fetus in vertex presentation. heart rate is 163 beats per minute. Normal amount of amniotic fluid. 2. Estimated weight is at 7% for gestational age. 3. four-chamber heart and outflow tracts are visualized on the current study and are within normal limits. We strive to produce accurate, complete, and clear reports of imaging services. To assist us in improving patient care, this report was composed using standard report templates and voice recognition software. Therefore, it may contain abnormal punctuation, insertions and/or omissions. Occasional wrong-word or sound-alike substitutions may occur. Though we review the report and make efforts to correct it, we do recommend that the report be read carefully in proper context to recognize any text inaccuracies. Dictated by: Olu Conti M.D. on 01/02/2023 at 16:22 Approved by: Olu Conti M.D. on 01/02/2023 at 16:25
== END ==
PROVIDERS: PCP Family Medicine; Referring Provider Family Medicine; Visit Provider Family Medicine
DX: O36.5920 Maternal care for other known or suspected poor fetal growth, second trimester, not applicable or unspecified (principal); Z3A.24 24 weeks gestation of pregnancy
CPT/HCPCS: 76815

== ENCOUNTER → 2023-01-23 14:12 | Outpatient (CLI) | payer OTHER, MEDICAID, SELFPAY ==
[2023-01-23 16:08] LABS: GTT (PREG) 1 Hour PP 50gm Dose 115 mg/dL (76-139)
[2023-01-23 16:56] LABS: Add Manual Diff / Slide Review NO; Basophils Absolute Auto 0 /uL (0-100); Basophils Percent Auto 0.4 % (0-2); Eosinophils Absolute Auto 100 /uL (0-450); Eosinophils Percent Auto 1.4 % (2-4); Lymphocytes Absolute Auto 1200 /uL (1100-4500); Lymphocytes Percent Auto 19.3 % (25-40); Mean Corpuscular HGB Conc 35.5 % (30-36); Mean Corpuscular Hemoglobin 31.1 PG (26-34); Mean Corpuscular Volume 87.7 fL (80-100); Monocytes Absolute Auto 400 /uL (0-900); Neutrophils Absolute Auto 4600 /uL (1500-7000); Neutrophils Percent Auto 72.9 % (50-75); Platelet Count 222 X10^3/uL (150-400); Red Blood Cell Count 3.53 X10^6/uL (4.0-5.2); Red Cell Distribution Width 13.2 % (11.6-14.8); White Blood Cell Count 6.3 X10^3/uL (4.5-11.0)
== END ==
PROVIDERS: PCP Family Medicine; Referring Provider Family Medicine; Visit Provider Family Medicine
DX: Z34.82 Encounter for supervision of other normal pregnancy, second trimester (principal); Z3A.26 26 weeks gestation of pregnancy
CPT/HCPCS: 36415; 82950; 85025

== ENCOUNTER 2023-02-24 11:59 | Outpatient (CLI) | payer OTHER, MEDICAID, SELFPAY | END 2023-02-24 12:41 | disposition home or self-care (01) | LOC: LABOR 13:06 → OB 02-27 13:58 | PROVIDERS: PCP Family Medicine; Referring Provider Family Medicine; Visit Provider Family Medicine | DX: O36.5930 Maternal care for other known or suspected poor fetal growth, third trimester, not applicable or unspecified (principal); Z3A.32 32 weeks gestation of pregnancy | CPT/HCPCS: 59025; G0378; G0379 ==

== ENCOUNTER 2023-03-03 11:35 | Outpatient (CLI) | payer OTHER, MEDICAID, SELFPAY ==
--- NOTE | 2023-03-03 12:19 | P.TNLD_ITS ---
Visit Information Visit Information Date of evaluation: 03/03/23 Primary OB Provider: Sue Peralta Comments/Additional reasons for admission: 27yo at 33w4d here for NST for IUGR. 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 ) current occupational exposures/hazards: Yes (aware of which chemicals, advised to wear N-95 when using.) special merlene needs: No travel history: over 6 months ago seatbelt use: always water heater temp set < 120 deg: Yes working smoke detector in home: Yes fire extinguisher in home: Yes carbon monox detector in home: Yes firearms in home: No do you feel safe at home: Yes Smoking Status: Never smoker second hand exposure: No alcohol intake: never substance use type: does not use during the past year weight has: remained stable well-balanced diet: rarely or never daily servings fruits/ve-1 caffeine: Yes (1 cup coffee/day) Type(s) of exercise: walking frequency: daily duration: 30-45 minutes/day Evaluation Evaluation Baseline heart rate: 120 Variability: Moderate (11-25) monitor accelerations: Present Monitor Decelerations: Absent Category of Tracing: Reactive Diagnosis, Plan/Disposition Final Diagnosis (1) IUGR (intrauterine growth restriction): Status: Acute Plan/Disposition Plan: 27yo at 33w4d here for NST for IUGR. Reactive NST. Continue regular testing. OB Disposition: home
== END 2023-03-09 12:40 | disposition home or self-care (01) ==
LOC: LABOR 12:12 → OB 03-06 07:41
PROVIDERS: PCP Family Medicine; Referring Provider Family Medicine; Visit Provider Family Medicine
DX: O36.5930 Maternal care for other known or suspected poor fetal growth, third trimester, not applicable or unspecified (principal); Z3A.33 33 weeks gestation of pregnancy
CPT/HCPCS: 59025; G0378; G0379

== ENCOUNTER 2023-03-09 12:00 | Outpatient (CLI) | payer OTHER, MEDICAID, SELFPAY ==
--- NOTE | 2023-03-09 12:38 | P.TNLD_ITS ---
Visit Information Visit Information Date of evaluation: 03/09/23 Primary OB Provider: Sue Peralta On-call OB Provider: Mark Thompson Reason for Evaluation: Yes non-stress test Comments/Additional reasons for admission: 27 yo at 34+3 for NST due to IUGR being followed jointly by Dr. Peralta and HENRY VALENTIN. 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 ) current occupational exposures/hazards: Yes (aware of which chemicals, advised to wear N-95 when using.) special merlene needs: No travel history: over 6 months ago seatbelt use: always water heater temp set < 120 deg: Yes working smoke detector in home: Yes fire extinguisher in home: Yes carbon monox detector in home: Yes firearms in home: No do you feel safe at home: Yes Smoking Status: Never smoker second hand exposure: No alcohol intake: never substance use type: does not use during the past year weight has: remained stable well-balanced diet: rarely or never daily servings fruits/ve-1 caffeine: Yes (1 cup coffee/day) Type(s) of exercise: walking frequency: daily duration: 30-45 minutes/day Evaluation Evaluation Baseline heart rate: 130 Variability: Average (6-10) monitor accelerations: Present Monitor Decelerations: Absent Contraction Frequency (minutes): 4 Uterine Contraction Intensity: Mild (Patient doesn't feel any contractions or cramping) Category of Tracing: Reactive Status: Category l Diagnosis, Plan/Disposition Final Diagnosis (1) IUGR (intrauterine growth restriction): Status: Acute Plan/Disposition Plan: Discharge to home with instructions. Follow-up as planned previously by Dr. [facility]eralta [facility] Disposition: home
== END 2023-03-09 12:40 | disposition home or self-care (01) ==
LOC: LABOR 12:53 → OB 03-13 09:51
PROVIDERS: PCP Family Medicine; Referring Provider Family Medicine; Visit Provider Family Medicine
DX: O36.5930 Maternal care for other known or suspected poor fetal growth, third trimester, not applicable or unspecified (principal); Z3A.34 34 weeks gestation of pregnancy
CPT/HCPCS: 59025; G0378; G0379

== ENCOUNTER 2023-03-14 12:04 | Outpatient (CLI) | payer OTHER, MEDICAID, SELFPAY | END 2023-03-14 12:48 | disposition home or self-care (01) | LOC: LABOR 12:28 → OB 03-22 08:47 | PROVIDERS: PCP Family Medicine; Referring Provider Family Medicine; Visit Provider Family Medicine | DX: O36.5930 Maternal care for other known or suspected poor fetal growth, third trimester, not applicable or unspecified (principal); Z3A.35 35 weeks gestation of pregnancy | CPT/HCPCS: 59025; G0378; G0379 ==

== ENCOUNTER 2023-03-17 12:24 | Outpatient (CLI) | payer OTHER, MEDICAID, SELFPAY | END 2023-03-17 13:00 | disposition home or self-care (01) | LOC: LABOR 13:18 → OB 03-22 08:49 | PROVIDERS: PCP Family Medicine; Referring Provider Family Medicine; Visit Provider Family Medicine | DX: O36.5930 Maternal care for other known or suspected poor fetal growth, third trimester, not applicable or unspecified (principal); Z3A.35 35 weeks gestation of pregnancy | CPT/HCPCS: 59025; G0378; G0379 ==

== ENCOUNTER 2023-03-20 14:01 | Outpatient (CLI) | payer BC, OTHER, SELFPAY ==
--- NOTE | 2023-03-20 15:11 | DI.US.S_ITS ---
PROCEDURE: US OB BIOPHYSICAL PROFILE INDICATIONS: INTRAUTERINE GROWTH RESTRICTION. CORD DOPPLERS OUTSIDE/PRIOR DATING DATA: Last menstrual period (LMP): Unknown. LMP-based estimated date of delivery (JAHAIRA): Unknown. First dating scan (date and location): 11/28/2022. Estimated date of delivery (JAHAIRA) from first dating scan: 04/24/2023. The calculations are made using the clinical JAHAIRA of 04/17/2023. TECHNIQUE: Real-time scanning was performed of the fetus for biophysical profile, with image documentation. Color and pulse Doppler interrogation was also performed of the umbilical artery near its insertion into the placenta. Endovaginal scanning: Not performed COMPARISON: None. FINDINGS: General: A single living intrauterine gestation is present. Presentation: Vertex. Placenta: Placental position is posterior, without previa. Amniotic fluid index: 11.4 cm, normal range is 5-24 cm. Single deepest vertical pocket is 3.3 cm. heart rate: 162 beats per minute. Maternal cervical canal: Not seen. Clinically estimated gestational age: 36 weeks 0 days. Biophysical profile: Tone: 2 points. Movement: 2 points. Respiration: 2 points. Largest pocket of fluid: 2 points. Umbilical artery Doppler: Normal waveform. SD ratio ranges 2.7 through 3.6. IMPRESSION: Single living intrauterine at 36 weeks 0 days. JAHAIRA of 04/17/2023. BPP 8 of 8. Normal umbilical artery waveform. We strive to produce accurate, complete, and clear reports of imaging services. To assist us in improving patient care, this report was composed using standard report templates and voice recognition software. Therefore, it may contain abnormal punctuation, insertions and/or omissions. Occasional wrong-word or sound-alike substitutions may occur. Though we review the report and make efforts to correct it, we do recommend that the report be read carefully in proper context to recognize any text inaccuracies. Dictated by: Denis Feng M.D. on 03/20/2023 at 15:48 Approved by: Denis Feng M.D. on 03/20/2023 at 15:51
--- NOTE | 2023-03-20 16:23 | PM.OBTRLD ---
Visit Information Visit Information Date of evaluation: 03/20/23 Primary OB Provider: Sue Peralta Comments/Additional reasons for admission: 27yo at 36w0d here for NST for IUGR. Pt is feeling her baby move regularly. No LOF, vaginal bleeding, contractions. 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 ) current occupational exposures/hazards: Yes (aware of which chemicals, advised to wear N-95 when using.) special merlene needs: No travel history: over 6 months ago seatbelt use: always water heater temp set < 120 deg: Yes working smoke detector in home: Yes fire extinguisher in home: Yes carbon monox detector in home: Yes firearms in home: No do you feel safe at home: Yes Smoking Status: Never smoker second hand exposure: No alcohol intake: never substance use type: does not use during the past year weight has: remained stable well-balanced diet: rarely or never daily servings fruits/ve-1 caffeine: Yes (1 cup coffee/day) Type(s) of exercise: walking frequency: daily duration: 30-45 minutes/day Evaluation Evaluation Baseline heart rate: 130 Variability: Moderate (11-25) monitor accelerations: Present Monitor Decelerations: Absent Diagnosis, Plan/Disposition Final Diagnosis (1) IUGR (intrauterine growth restriction): Status: Acute Plan/Disposition Plan: 27yo at 36w0d here for NST for IUGR. Initially NST with questionable decels. BPP 8/8, reassuring UA dopplers. Prolonged monitoring now reassuring. Stable for d/c home. Ongoing testing, ultrasounds. OB Disposition: home
== END 2023-03-20 16:30 | disposition home or self-care (01) ==
LOC: LABOR 14:40 → OB 03-24 16:19
PROVIDERS: PCP Family Medicine; Referring Provider Family Medicine; Visit Provider Family Medicine
DX: O36.5930 Maternal care for other known or suspected poor fetal growth, third trimester, not applicable or unspecified (principal); Z3A.36 36 weeks gestation of pregnancy
CPT/HCPCS: 59025; 59050; 76819; 76820; G0378; G0379

== ENCOUNTER 2023-03-27 15:45 | Outpatient (CLI) | payer BC, OTHER, SELFPAY ==
--- NOTE | 2023-03-27 15:48 | DI.US.S_ITS ---
PROCEDURE: US OB LIMITED INDICATIONS: INTRAUTERINE GROWTH RESTRICTION - BIOPHYSICAL/GROWTH/DOPPLER OUTSIDE/PRIOR DATING DATA: Last menstrual period (LMP): Uncertain. First dating scan (date and location): 11/28/2022. Estimated date of delivery (JAHAIRA) from first dating scan: 04/24/2023. Working JAHAIRA is 04/17/2023 per provider. TECHNIQUE: Real-time scanning was performed of the fetus, with image documentation and biometric measurements. [facility], 03/20/2023, 14:59. FINDINGS: A single living intrauterine gestation is present. Presentation: Vertex. Placenta: Placental position is posterior, without previa. Amniotic fluid index: 5.2 cm, normal range is 5-24 cm. Single deepest vertical pocket is 3.2 cm. heart rate: 168 beats per minute. Maternal cervical canal: Not well seen BPD is 8.7 cm, corresponding to 35 weeks Head circumference is 31.4 cm, corresponding to 35 weeks and 2 days Abdominal circumference is 28.3 cm corresponding to 32 weeks and 2 days. Femur length is 6.7 cm corresponding to 34 weeks and 3 days. Estimated gestational age is 37 weeks. Biometry today measures 34 weeks and 2 days, which is at the 2nd percentile. Estimated weight is 2201 g. 8/8 BPP Cord Doppler measures up to 3.9 SD ratio in the mid region. Diastolic flow is preserved. IMPRESSION: Living intrauterine gestation with working JAHAIRA of 04/17/2023 per provider. Borderline low VALENCIA of 5.2 cm. Abnormal growth, with EFW now in the 2nd percentile. Mildly elevated cord Doppler in the mid region measuring up to 3.9 SD ratio. Diastolic flow is preserved at this time. 8/8 BPP. Continued obstetric and imaging follow-up suggested. Dictated by: Sha Omer M.D. on 03/27/2023 at 17:47 Approved by: Sha Omer M.D. on 03/27/2023 at 17:53
--- NOTE | 2023-03-27 16:59 | P.TNLD_ITS ---
Visit Information Visit Information Date of evaluation: 03/27/23 Primary OB Provider: Sue Peralta Comments/Additional reasons for admission: 27yo at 37w0d here for NST for IUGR and borderline oligohydramnios. 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 ) current occupational exposures/hazards: Yes (aware of which chemicals, advised to wear N-95 when using.) special merlene needs: No travel history: over 6 months ago seatbelt use: always water heater temp set < 120 deg: Yes working smoke detector in home: Yes fire extinguisher in home: Yes carbon monox detector in home: Yes firearms in home: No do you feel safe at home: Yes Smoking Status: Never smoker second hand exposure: No alcohol intake: never substance use type: does not use during the past year weight has: remained stable well-balanced diet: rarely or never daily servings fruits/ve-1 caffeine: Yes (1 cup coffee/day) Type(s) of exercise: walking frequency: daily duration: 30-45 minutes/day Evaluation Evaluation Baseline heart rate: 140 Variability: Moderate (11-25) monitor accelerations: Present Monitor Decelerations: Absent Category of Tracing: Reactive Diagnosis, Plan/Disposition Final Diagnosis (1) IUGR (intrauterine growth restriction): Status: Acute Plan/Disposition Plan: 27yo at 37w0d here for NST for IUGR and borderline oligohydramnios. NST reactive. U/S today stable form 03/24. Will continue with plan for IOL on 03/30 as pt is unable to provide childcare earlier. Will return for NST on 03/29. OB Disposition: home
== END 2023-03-27 17:05 | disposition home or self-care (01) ==
LOC: OB 03-30 14:50
PROVIDERS: PCP Family Medicine; Referring Provider Family Medicine; Visit Provider Family Medicine
DX: O36.5930 Maternal care for other known or suspected poor fetal growth, third trimester, not applicable or unspecified (principal); O41.03X0 Oligohydramnios, third trimester, not applicable or unspecified; Z3A.37 37 weeks gestation of pregnancy; Z34.83 Encounter for supervision of other normal pregnancy, third trimester
CPT/HCPCS: 59025; 76815; 76819; 76820; 87653; G0378; G0379

== ENCOUNTER → 2023-03-27 15:50 | Outpatient (CLI) | payer BC, OTHER, SELFPAY ==
[2023-03-28 13:46] LABS: Strep Grp B PCR NEG for Grp B Strep
== END ==
PROVIDERS: PCP Family Medicine; Visit Provider Family Medicine
DX: Z3A.37 37 weeks gestation of pregnancy; Z34.83 Encounter for supervision of other normal pregnancy, third trimester
CPT/HCPCS: 87653

== ENCOUNTER 2023-03-29 12:06 | Outpatient (CLI) | payer BC, OTHER, SELFPAY | END 2023-03-29 12:49 | disposition home or self-care (01) | LOC: OB 03-30 14:48 | PROVIDERS: PCP Family Medicine; Referring Provider Family Medicine; Visit Provider Family Medicine | DX: O36.5930 Maternal care for other known or suspected poor fetal growth, third trimester, not applicable or unspecified (principal); Z3A.37 37 weeks gestation of pregnancy | CPT/HCPCS: 59025; G0378; G0379 ==

== ENCOUNTER 2023-03-30 19:28 | Inpatient (IN) | payer BC, OTHER, SELFPAY ==
[2023-03-30 19:59] VITALS: BP 113/68
[2023-03-30 20:32] LABS: Add Manual Diff / Slide Review NO; Basophils Absolute Auto 100 /uL (0-100); Basophils Percent Auto 1.2 % (0-2); Eosinophils Absolute Auto 100 /uL (0-450); Eosinophils Percent Auto 0.9 % (2-4); Hematocrit 34.8 % (36-46); Hemoglobin 12.3 g/dL (12.0-16.0); Lymphocytes Absolute Auto 1800 /uL (1100-4500); Lymphocytes Percent Auto 28.9 % (25-40); Mean Corpuscular HGB Conc 35.2 % (30-36); Monocytes Absolute Auto 500 /uL (0-900); Monocytes Percent Auto 7.6 % (3-14); Neutrophils Absolute Auto 3900 /uL (1500-7000); Neutrophils Percent Auto 61.4 % (50-75); Platelet Count 221 X10^3/uL (150-400); Red Blood Cell Count 3.96 X10^6/uL (4.0-5.2); Red Cell Distribution Width 13.3 % (11.6-14.8); White Blood Cell Count 6.4 X10^3/uL (4.5-11.0)
[2023-03-30] MEDS: DINOPROSTONE VAG (CERVIDIL) 10 MG VAG (20:32)
--- NOTE | 2023-03-31 08:54 | P.HPOB_ITS ---
OB HPI Date/Time Date of admission: 03/30/23 Date Patient Seen: 03/31/23 History of Present Condition Chief complaint: OB JAHAIRA Calculator Estimated Delivery Date Method Current WG Current Estimate 04/17/23 Manual 37w 4d Final JAHAIRA - ESTHER Other Estimates 04/17/23 LMP (Certain) 37w 4d 04/18/23 Ultrasound #1 37w 3d Estimated Gestational Age (weeks): 37w4d : 2 Para: 1 Narrative: Pt is a 27yo at 37w4d here for IOL for IUGR and borderline oligohydramnios. The pt denies any vaginal bleeding or LOF. She started carole last night with the cervidil, now 5-10 minutes apart. She continues to feel her baby move regularly. The pt had an EFW in the 8th percentile at her anatomy u/s, f/u u/s 4wks later 7th percentile. She was then referred to [facility], where u/s confirmed 7th percentile. testing with weekly VALENCIA and umbilical artery dopplers was initiated at 27wks. At 34wks, the baby was noted to be in the 2nd percentile. Full testing with regular NSTs was initiated. Growth has remained in the 2nd percentile with reassuring dopplers since then. At her last [facility] u/s on 03/24, the pt was noted to have borderline low VALENCIA of 5.7, and IOL was recommended at 37wks. care: good care, initiated at week # (11) and pounds weight gain (24) Dating criteria OB: LMP confirmed by 1st trimester US Ultrasounds: normal 1st trimester US and abnormal US findings (SGA transitioning to IUGR; normal anatomy) Obstetrical complications: growth restriction Medical complications OB: none Indications Indication for induction OB: intra-uterine growth restriction Preadmission Labs Last OB Lab Results: Blood Type O Positive 03/30/23 20:21 Antibody Screen Negative 03/30/23 20: Hematocrit 34.8 % (36-46) L 03/30/23 20:21 Hemoglobin 12.3 g/dL (12.0-16.0) 03/30/23 20:21 Hepatitis B Surface Antigen Negative s/c (NEGATIVE) 09/26/22 14 :14 Hepatitis C Antibody Negative s/c (NEGATIVE) 09/26/22 14:14 Rubella Antibody 65.4 IU/mL (>15) 09/26/22 14:14 Varicella-Zoster IgG Antibody 418 index (Immune >165) 09/26/22 14:14 Glucose 1 Hour 115 mg/dL (76-139) 01/23/23 15:18 Group B Streptococcus (PCR) Neg for grp b strep 03/27/23 15:50 -: Urine: negative Genetic Screens: Quad screen: Normal External Labs -: Urine: negative Prior (ies) Past Pregnancies Del. Date GA/Weeks Labor Lgth Wt Sex Route Outcome Anesthesia Place Delv Breastfeed Preg Comp Name 07/03/19 38 9 6 lb 5 oz Male vaginal live - full term IH 1 year other [place] Delivery Date: 07/03/19 Last Updated by: Eboni Jain RN Induction for PROM Evaluation Evaluation Baseline heart rate: 135 Variability: Moderate (11-25) monitor accelerations: Present Monitor Decelerations: Absent Status: Category l Dilation (cm): 3 Effacement (%): 80 Dilation: 3-4 cm Effacement: >/=80% station: -1 Position of cervix: posterior Consistency: soft Schmidt score: 9 PFSH Medical History (Updated 01/27/23 @ 12:30 by Sue Peralta MD) Spontaneous vaginal delivery Surgical History No history of previous surgery Family History Grandfather Diabetes mellitus Grandfather Diabetes mellitus Grandmother Hypertension Social History marital status: number of children: 1 household members: spouse and children lives independently: Yes housing: house pets and animals: No education level: vocational 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 ) current occupational exposures/hazards: Yes (aware of which chemicals, advised to wear N-95 when using.) special merlene needs: No travel history: over 6 months ago seatbelt use: always water heater temp set < 120 deg: Yes working smoke detector in home: Yes fire extinguisher in home: Yes carbon monox detector in home: Yes firearms in home: No do you feel safe at home: Yes Smoking Status: Never smoker second hand exposure: No alcohol intake: never substance use type: does not use during the past year weight has: remained stable well-balanced diet: rarely or never daily servings fruits/ve-1 caffeine: Yes (1 cup coffee/day) Type(s) of exercise: walking frequency: daily duration: 30-45 minutes/day Meds Home Medications and Allergies Home Medications Medication Instructions Recorded Confirmed Type prenat.vits,philip,ucw-[id number] 1 tab PO DAILY 12/12/18 03/30/23 History Allergies Allergy/AdvReac Type Severity Reaction Status Date / Time No Known Drug Allergies Allergy Verified 03/30/23 20:00 OB Exam Narrative Exam Narrative: Gen: NAD, sitting comfortably in bed, appears well CV: RRR, no murmurs Resp: clear to auscultation bilaterally Abd: soft, nontender, gravid Ext: no edema Objective Labs 03/30/23 20:21 Labs: Laboratory Results - last 24 hr 03/30/23 03/30/23 20:21 20:21 WBC 6.4 RBC 3.96 L Hgb 12.3 Hct 34.8 L MCV 88.0 MCH 31.0 MCHC 35.2 RDW 13.3 Plt Count 221 Neut % (Auto) 61.4 Lymph % (Auto) 28.9 [place] % (Auto) 7.6 Eos % (Auto) 0.9 L Baso % (Auto) 1.2 Neut # (Auto) 3900 Lymph # (Auto) 1800 [place] # (Auto) 500 Eos # (Auto) 100 Baso # (Auto) 100 Blood Type O Positive Antibody Screen Negative Assessment and Plan Assessment and Plan Assessment and Plan narrative: 27yo at 37w4d here for IOL for IUGR 2nd percentile and borderline oligohydramnios. testing has been reassuring. GBS negative, Rh positive. Pt did receive cervidil overnight with good cervical change. - Expectant management, anticipate . Pt aware that due to IUGR baby can show signs of stress more easily. - GBS negative, no prophylaxis indicated - FHT reassuring - Epidural for pain control when desired - Start pitocin after breakfast, titrate as tolerated
[2023-03-31] MEDS: OXYTOCIN PREMIX 30 UNIT/500 ML PLAST..BAG IV (09:16)
[2023-03-31] MEDS: FENT 2MCG/ML BUPIV 0.125% EPI 200 MCG/100 ML PLAST..BAG 6 MCG EPIDURAL (09:45)
--- NOTE | 2023-03-31 13:02 | PM.OBPNLAB ---
Date/Time Date Patient Seen: 03/31/23 Time Patient Seen: 13:03 Pain Control Pain control: epidural Pelvic Exam Dilation (cm): 4 Effacement (%): 80 station: -2 Amniotic membrane status: Ruptured Comments: After informed consent AROM performed with clear fluid present. Contractions Monitor mode: External Pitocin rate (mU/min): 12 Contraction frequency (min): 3 Status status: Category l Heart Rate Baseline: 130 Monitor Accelerations: Present Monitor Decelerations: Absent Monitor Variability: Moderate Assessment and Plan Comments: 27yo at 37w4d here for IOL for IUGR 2nd percentile and borderline oligohydramnios.? testing has been reassuring.? GBS negative, Rh positive.? Cervidil overnight, now on pitocin. AROM performed with clear fluid present. - Expectant management, anticipate .? Pt aware that due to IUGR baby can show signs of stress more easily. - FHT reassuring - Epidural in place for pain control - Continue pitocin, titrate as tolerated
--- NOTE | 2023-03-31 15:40 | P.PCNOB_ITS ---
Labor & Delivery Delivery date: 03/31/23 Intrapartal Events: None Cervical ripening method: per Cervidil protocol Induction method: per pitocin protocol Delivery augmentation: rupture of membranes Delivery monitor: external FHT and external uterine Route of delivery: Episiotomy description: None L&D Laceration Description: None Quantitative Blood Loss: 50 Anesthesia Type: Epidural Complications: None Narrative: PROCEDURE: at 37w4d presented for IOL for IUGR and borderline oligohydramnios and was admitted to Labor and Delivery. She received cervidil for induction, followed by pitocin. The patient progressed through the 1st stage over 2 hours. AROM occured at 12:50 with clear fluid. Pain was controlled with an epidural. Category II tracing with recurrent variable decels was managed by position changes and maternal oxygen. The patient progressed through the 2nd stage over 24 minutes and delivered a viable male infant with APGARs 7/8 at 15:19 via without complications. The cord was cut and clamped after it stopped pulsating. The placenta delivered with gentle cord traction, and appeared complete. The perineum and vagina were inspected with no lacerations. Needle and sponge counts were correct.? The vagina was inspected and no items were left in situ. Eloise was doing well with her and her at bedside. PREPROCEDURE DIAGNOSIS: Intrauterine at 37w4d IUGR Borderline oligohydramnios GBS negative RH positive POSTPROCEDURE DIAGNOSIS: Intrauterine at 37w4d, delivered Same as preprocedure [place] Baby 1: gender: Male Presentation: vertex Position: Left Occiput Anterior Placenta delivery description: Spontaneous Cord Vessel Description: 3 Vessels score (1 min): 7 score (5 min): 8 weight: 5 lb 3.458 oz Plan for aftercare: Routine care
[2023-04-01] MEDS: DOCUSATE 100 MG CAPSULE PO (08:41)
[2023-04-01] MEDS: PRENATAL VIT,CALC/IRON/FOLIC 1 TABLET 1 TAB PO (08:41)
--- NOTE | 2023-04-01 11:18 | P.DS_ITS ---
Discharge Providers Provider Date of admission: 03/30/23 19:28 Discharge Date: 04/01/23 Primary care physician: Sue Peralta MD Consults: 04/01/23 15:39 Consult to Pulmonology Technician Routine Comment: Discharge provider: Sue Peralta MD Summary Hospital Course Date Patient Seen: 04/01/23 Time Patient Seen: 11:18 Diagnoses: Intrauterine at 37w4d IUGR Borderline oligohydramnios GBS negative RH positive Hospital Course: The pt presented for IOL due to IUGR with borderline oligohydramnios. She was given cervidil followed by pitocin. AROM was performed with clear fluid present. She had an epidural for pain control. She progressed to complete and had an of a viable baby boy without complications. There were no lacer ations. , there were no complications. At the time of discharge she was voiding, ambulating, and passing flatus without difficulty. Her lochia was decreasing appropriately. Her pain was well controlled. She was formula supplementing and pumping. She will f/u in 6 weeks for check. She would like Mirena IUD for contraception. Peripartum Data Delivery Method: Natural Vaginal Laceration Description: None Episiotomy description: None Procedures: Spontaneous vaginal delivery complications: none [place] 1: Gender: Male Disposition of : home Discharge Diagnosis (1) IUGR (intrauterine growth restriction): Status: Acute (2) Spontaneous vaginal delivery: Status: Acute Time Spent with Patient Time attestation: Total time spent providing and/or coordinating discharge services: Objective Labs 03/30/23 20:21 Exam Narrative Exam Narrative: Gen: NAD, sitting comfortably in bed, appears well CV: RRR, no murmurs Resp: clear to auscultation bilaterally Abd: soft, appropriately tender, fundus firm and below the umbilicus, nondistended Ext: no edema Discharge Plan Discharge Plan Patient Disposition: Home Discharge orders & Medications Prescriptions: New acetaminophen 325 mg Tablet 650 mg PO Q6HR PRN (Reason: Pain, Mild (1-3)) Qty: 30 0RF docusate sodium 100 mg Capsule 100 mg PO DAILY Qty: 30 0RF ibuprofen 600 mg Tablet 600 mg PO Q6HR PRN (Reason: Pain, Mild (1-3)) Qty: 30 0RF Continued prenat.vits,philip,[id number]-[id number] tablet 1 tab PO DAILY Follow up/Referrals: Sue Peralta MD [Primary Care Provider] - 6 Weeks (Make an appointment for a six weeks check with when you see her for baby's 1st appointment.) Diet/Activity/Treatments Diet: Diet as Tolerated and Regular Skin/Wound/Dressing Care Report to your healthcare provider any signs of infection, such as:: chills, fever, increased pain and unusual drainage Visit Report/Discharge Packet Instructions: DI for Labor and Delivery, Vaginal Stand Alone Forms: Patient Portal/API, Stroke Signs & Symptoms Discharge Data Primary Care Provider: Sue Peralta Discharges patient from system. Discharge Date/Time: 04/01/23 17:00
[2023-04-01 14:15] VITALS: BP 111/85; PULSE 95; RESP 16; TEMP 36.9
== END 2023-04-01 17:00 | disposition home or self-care (01) | DRG 806 ==
PROVIDERS: Admitting Provider Family Medicine; PCP Family Medicine; Referring Provider Family Medicine; Visit Provider Family Medicine
DX: O36.5930 Maternal care for other known or suspected poor fetal growth, third trimester, not applicable or unspecified (principal); O41.03X0 Oligohydramnios, third trimester, not applicable or unspecified; Z37.0 Single live birth; Z3A.37 37 weeks gestation of pregnancy; Z67.40 Type O blood, Rh positive; O76 Abnormality in fetal heart rate and rhythm complicating labor and delivery
CPT/HCPCS: 59025; 59050; 59400; 85025; 86850; 86900; 86901; G0379; J2590